=== PATIENT | female | born 1945 | race Caucasian/White ===

== ENCOUNTER → 2020-09-29 10:10 | Outpatient (CLI) | payer MEDICARE, SELFPAY ==
--- NOTE | ~2020-09-29 | XR_ITS ---
EXAMINATION: XR hip LT min 3V w AP pelvis EXAM DATE: 09/29/2020 10:33 INDICATION: Left hip pain. TECHNIQUE: Left hip frontal, 'frog leg' projections for interpretation. Frontal projection pelvis. There is no prior study for comparison. FINDINGS: Smooth left hip femoral head contour, no radiographic evidence of avascular necrosis. Ther e is mild symmetric bilateral hip primary osteoarthritis. There are no acute fractures or dislocation s identified. There is no subcutaneous gas. The soft tissue is unremarkable. Some laparotomy wire s, right abdominal suture material and pelvic surgical clips. IMPRESSION: Mild symmetric bilateral hip osteoarthritis. Reviewed, dictated and finalized at location A.
== END ==
PROVIDERS: PCP Family Medicine; Visit Provider Physician Assistant Medical
DX: M25.552 Pain in left hip (principal); M16.0 Bilateral primary osteoarthritis of hip
CPT/HCPCS: 73502

== ENCOUNTER 2021-12-22 13:28 | Emergency (ER) | payer MEDICARE, SELFPAY ==
[2021-12-22 13:43] VITALS: BP 124/71; PULSE 68; RESP 16; TEMP 36.3; O2SAT 99
--- NOTE | 2021-12-22 13:58 | ED.GENADULT ---
HPI - General Adult General Chief complaint: Dizziness Stated complaint: dizziness History of Present Illness HPI narrative: Patient is a 76-year-old female who presents to the [facility] via POV for an evaluation of dizziness that began last night. She reports her dizziness as a spinning sensation. She states her symptoms improve with lying down and worsen with all movement. History of vertigo. Today's symptoms are identical to previous episode of vertigo. Denies taking OTC meds for symptoms. Related Data Home Medications Medication Instructions Recorded Confirmed cholecalciferol (vitamin D3) 50 2,000 unit PO DAILY 07/27/19 06/26/21 mcg (2,000 unit) capsule Allergies Allergy/AdvReac Type Severity Reaction Status Date / Time Sulfa (Sulfonamide Allergy Unknown Skin Verified 10/31/21 10:38 Antibiotics) Reaction Review of Systems Review of Systems: Denies fever, chills, sweats, poor p.o. intake, LOC, paresthesias, shortness of breath, nausea, vomiting, diarrhea, abdominal pain, chest pain, and heart palpitations PMFSH Past Medical History Medical History Exostosis of left posterior calcaneus Retrocalcaneal bursitis Family History Family History Other Breast cancer Social History Social History Smoking packs per day: 3 Smoking cigarettes per day: 60.0 Tobacco type: cigarettes Alcohol intake: never Substance use: never Substance use type: does not use Comments I have reviewed and agree with the patient's past medical, surgical, social, and family hx as documented by the RN. There is no relevant family history pertinent to the presenting complaint. Exam Narrative: GENERAL: Well-appearing, well-nourished, and in no acute distress. HEAD: Normocephalic, atraumatic. No sinus tenderness or facial swelling appreciated. No evidence of ear bleeding or drainage from ears. No evidence of foreign bodies. No signs of basilar skull fracture: no hemotympanum, marx's sign, or raccoon's eyes. EYES: PERRLA and EOMI. No evidence of erythema, swelling, or drainage. ENT: Bilateral external ears and ear canals normal. Bilateral TMs are normal. No TM perforation. Nares clear, no septal hematoma or epistaxis. Bilateral turbinates without erythema/ swelling. Mucous membranes moist and pink. Uvula is midline without erythema and swelling. No evidence of petechial rash, cobblestoning, lesions, ulcers, erythema, swelling, exudates, peritonsillar abscess, tenting, or drooling. Breath odor and voice normal. NECK: Supple. No injury or pain appreciated. No lymphadenopathy or nuchal rigidity appreciated. CHEST: Bilateral lung weiner are clear to auscultation. No respiratory distress. No evidence of cough or pleuritic cp upon examination. No evidence of deformity, flail chest, hematomas, contusions, lacerations. HEART: Regular rate and rhythm. No murmur, gallop, or rub heard. ABDOMEN: Soft, nontender, nondistended, normal active bowel sounds in all quadrants. No guarding. No rebound tenderness. No pulsatile or palpable abdominal mass(es). No CVAT. No evidence of seat belt sign. BACK: Full ROM. No evidence of deformity, spasm, mass, spinal tenderness, or swelling. EXTREMITIES: Normal range of motion. No edema. SKIN: Warm, dry, no rash. No evidence of loss of sensation. NEURO: No focal deficits. Alert and oriented x4. Positive Romberg's tests. Patient sways to the left and the right. Gait is slowed. Patient hangs onto the wall for support while ambulating. EXTREMITIES: FROM. Pulses palpable at 2+, strength 5/5, and cap refill < 3 seconds in affected extremity. Bilateral biceps, triceps, knee, and ankle reflexes are 2+. Sensation normal. Course Course Level of Care: Express Care Visit Vital Signs Vital si
== END 2021-12-22 14:08 | disposition home or self-care (01) ==
PROVIDERS: Emergency Provider Nurse Practitioner Family; PCP Family Medicine
DX: H81.10 Benign paroxysmal vertigo, unspecified ear (principal); F17.210 Nicotine dependence, cigarettes, uncomplicated
CPT/HCPCS: 99213; G0463

== ENCOUNTER 2022-04-20 06:43 | Emergency (ER) | payer MEDICARE, SELFPAY ==
--- NOTE | ~2022-04-20 | CT_ITS ---
EXAMINATION: CT abdomen pelvis w con INDICATION: Constipation, left lower quadrant pain TECHNIQUE: Computed tomographic images of the abdomen and pelvis were obtained after the administrati on of 100 cc of Omnipaque 350 intravenous contrast. The dose-length product (DLP) was 158.33 mGy-cm. Automated exposure control and iterative reconstruction technique were employed. COMPARISON: None available FINDINGS: Minimal dependent atelectasis is present in the lung bases. The heart size is normal. There are bilateral breast implants. The gallbladder is surgically absent. There is mild enlargement of th e common bile duct and central intrahepatic ducts which is likely due to post cholecystectomy state. An 8 mm lesion of the right hepatic lobe appears to demonstrate peripheral nodular enhancement, consi stent with a hemangioma. Changes of gastric bypass are noted. The spleen, pancreas, and adrenal gland s are normal. The right kidney is unremarkable. There is a 4 mm stone at the left ureterovesicular ju nction which causes moderate left hydroureteronephrosis. No pathologically enlarged abdominal or pelv ic lymph nodes are identified. There is calcified atherosclerosis of the aorta and many of the other arteries. There is no free intraperitoneal gas or evidence of bowel obstruction. There is a 3.7 cm ri ght adnexal cyst. There is mild lumbar spondylosis. IMPRESSION: 1. 4 mm stone at the left ureterovesicular junction causing moderate left hydroureteronephrosis. 2. 3.7 cm cystic lesion of the right adnexa. For postmenopausal patient, follow-up with nonemergent p elvic ultrasound is recommended. Reviewed, dictated and finalized at location A. IMPRESSION: 1. 4 mm stone at the left ureterovesicular junction causing moderate left hydro ureteronephrosis. 2. 3.7 cm cystic lesion of the right adnexa. For postmenopausal patient, follow -up with nonemergent pelvic ultrasound is recommended.
[2022-04-20 06:52] VITALS: BP 151/75; PULSE 71; RESP 16; O2SAT 99
[2022-04-20 07:12] VITALS: BP 153/76; PULSE 72; RESP 18; O2SAT 100
--- NOTE | 2022-04-20 07:36 | ED.ABDPAIN ---
HPI - Abdominal Pain General Chief Complaint: Abdominal Pain Stated Complaint: abd pain Time Seen by Provider: 04/20/22 06:58 History of Present Illness HPI narrative: Patient states that since around 330 yesterday she started having pain in her left lower abdomen and back, with nausea, she has not had symptoms like this in the past that she can recall, cannot recall her last bowel movement. No fevers no chills, no diarrhea, does have a history of a gastric bypass. Related Data Home Medications Medication Instructions Recorded Confirmed cholecalciferol (vitamin D3) 50 2,000 unit PO DAILY 07/27/19 03/05/22 mcg (2,000 unit) capsule Allergies Allergy/AdvReac Type Severity Reaction Status Date / Time Sulfa (Sulfonamide Allergy Unknown Skin Verified 04/20/22 07:12 Antibiotics) Reaction Review of Systems Review of Systems: CONST: No fever. HEENT: No sore throat C/V: No chest pain RESP: No cough GI: Reports abdominal pain, nausea : No dysuria. M/S: No joint pain. SKIN: No rash. NEURO: [No headache or focal numbness or weakness] PSYCH: [No depression] [facility] Past Medical History Medical History (Updated 04/20/22 @ 09:52 by Dinah Gillespie MD) Exostosis of left posterior calcaneus Retrocalcaneal bursitis Surgical History Surgical History (Updated 04/20/22 @ 07:40 by Dinah Gillespie MD) H/O gastric bypass Family History Family History Other Breast cancer Social History Social History Smoking packs per day: 3 Smoking cigarettes per day: 60.0 Smoking status: Never smoker Tobacco type: cigarettes Alcohol intake: never Substance use: never Substance use type: does not use Exam Narrative: EXAMINATION OF ORGAN SYSTEMS/BODY AREAS: Constitutional: Vital signs per nursing GENERAL: Appears somewhat uncomfortable and holding her left lower abdomen HEAD: Normal with no signs of head trauma. EYES: EOMI, conjunctiva normal ENT: Hearing grossly intact LUNGS: Nonlabored breathing. HEART: [Regular rate and rhythm] ABD: [Soft], [mildly tender to palpation left lower quadrant and flank] EXT: Normal range of motion SKIN: [No rashes or lesions.] NEURO: [Alert and oriented x 3. No gross focal sensory or strength deficits.] PSYCH: Normal affect Course Vital Signs Vital signs: Vital Signs Pulse Rate 71 04/20/22 06:52 Respiratory Rate 16 04/20/22 06:52 Blood Pressure 151/75 H 04/20/22 06:52 Pulse Oximetry 99 04/20/22 06:52 Oxygen Delivery Room Air 04/20/22 06:52 Pulse Rate 72 04/20/22 10:42 Respiratory Rate 18 04/20/22 10:42 Blood Pressure 146/68 H 04/20/22 10:42 Pulse Oximetry 99 04/20/22 10:42 Oxygen Delivery Room Air 04/20/22 06:52 MDM - Abdominal Pain MDM Narrative Medical decision making narrative: ED COURSE AND MEDICAL DECISION MAKIN-year-old female presenting to the emergency department for acute flank/left lower quadrant pain, symptoms are concerning for likely renal colic, pyelonephritis, diverticulitis, SBO. Urinalysis and other labs ordered. Morphine and Zofran, IV fluids are ordered. CT scan of the abdomen/pelvis is ordered. Labs are remarkable for: Large amount of blood in the urine with some WBCs, very mildly elevated white count. CT scan of the abdomen/pelvis is reviewed by myself and interpreted by radiology: Left UVJ 4 mm stone. On reevaluation, the patient still having some pain but appears more comfortable. Case discussed with urologist who felt this was stable for outpatient follow-up on Friday. Patient is treated with antibiotics here and given a course to take at home as long with Flomax, she is strongly advised to return to the emergency department for any increasing pain not improving with medications, persistent nausea vomiting, fevers or chills or for any other concerns. Patient is comfortable with this plan and was disc
[2022-04-20] MEDS: LACTATED RINGERS 1,000 ML 999 ML IV CONT (07:42)
[2022-04-20] MEDS: MORPHINE SULFATE (*CRX) 4 MG/ML INJ IV PUSH (07:42)
[2022-04-20] MEDS: ONDANSETRON INJ 4 MG/2 ML VIAL IV PUSH (07:43)
[2022-04-20 07:47] LABS: Basophils Percent Auto 0.4 % (0.2-1.2); Eosinophils Absolute Auto 0.1 K/mm3 (0-0.3); Eosinophils Percent Auto 0.5 % (0-4.4); Hematocrit 48.4 % (37.0-47.0); Hemoglobin 15.7 g/dL (12.0-15.0); Immature Granulocyte Absolute 0.03 K/mm3 (0.00-0.031); Immature Granulocyte Percent A 0.3 % (0-0.5); Lymphocytes Absolute Auto 1.23 K/mm3 (0.9-3.2); Lymphocytes Percent Auto 11.5 % (18.3-44.2); Mean Corpuscular HGB Conc 32.4 g/dl (32-36); Mean Corpuscular Hemoglobin 29.9 pg (26-34); Mean Corpuscular Volume 92.2 fl (80-100); Monocytes Absolute Auto 0.8 K/mm3 (0.1-0.6); Monocytes Percent Auto 7.7 % (2.6-8.5); Neutrophils Absolute Auto 8.5 K/mm3 (1.3-6.7); Neutrophils Percent Auto 79.6 % (45.5-73.1); Platelet Count Result 235 k/mm3 (150-375); Red Blood Count 5.25 M/mm3 (4.2-5.4); Red Cell Distribution Width 13.2 % (11.5-14.5); White Blood Count 10.7 K/mm3 (4.5-10.0)
[2022-04-20 07:57] LABS: Alanine Aminotransferase 28 U/L (6-35); Albumin Level 4.7 g/dL (3.5-5.1); Alkaline Phosphatase 99 U/L (38-126); Anion Gap 11 mmol/L (8-16); Aspartate Amino Transferase 39 U/L (14-36); Bilirubin,Total 0.7 mg/dL (0.2-1.3); Blood Urea Nitrogen 16 mg/dL (7-17); Calcium 9.2 mg/dL (8.4-10.2); Carbon Dioxide 29 mmol/L (22-30); Chloride 103 mmol/L (98-107); Estimated Glomerular Filt Rate 40; Glucose 106 mg/dL (65-110); Lipase 53 U/L (23-300); Potassium 3.5 mmol/L (3.4-5.0); Sodium 143 mmol/L (137-145)
[2022-04-20 08:07] LABS: Add Urine Microscopic? YES; Appearance Urine Cloudy (Clear); Bacteria Urine Trace /hpf; Bilirubin Urine Negative (Negative); Blood Urine 3+ (Negative); Color Urine Yellow (Yellow); Glucose Urine UA Negative (Negative); Ketones Urine Negative (Negative); Leukocyte Esterase Ur Negative LEU/UL (Negative); Mucus Urine Rare /lpf; Nitrate Urine Negative (Negative); Protein Urine 1+ mg/dL (Negative); RBC Urine >75 /hpf (0-2); Specific Grav Ur 1.021 (1.001-1.035); Squamous Epithelial Cell Urine Few /hpf (Few); Urobilinogen Urine Negative mg/dL (<2.0); WBC Urine 21-30 /hpf
[2022-04-20 09:11] VITALS: BP 149/79; PULSE 78; RESP 18; O2SAT 98
[2022-04-20] MEDS: cefTRIAXone 2 GM in SODIUM CHLORIDE 0.9% IV 100 ML 200 ML IVPB (09:58)
[2022-04-20] MEDS: TAMSULOSIN HCL 0.4 MG CAPSULE PO (10:06)
[2022-04-20] MEDS: HYDROcodone/acetaminophen (*CRX) 5-325 MG TABLET 1 TAB PO (10:07)
[2022-04-20 10:08] VITALS: BP 150/76; PULSE 66; RESP 18; O2SAT 95
[2022-04-20 10:42] VITALS: BP 146/68; PULSE 72; RESP 18; O2SAT 99
== END 2022-04-20 10:44 | disposition home or self-care (01) ==
PROVIDERS: Emergency Provider Emergency Medicine; PCP Emergency Medicine
DX: N13.2 Hydronephrosis with renal and ureteral calculous obstruction (principal); Z98.84 Bariatric surgery status; N94.89 Other specified conditions associated with female genital organs and menstrual cycle
CPT/HCPCS: 36415; 74177; 80053; 81001; 83690; 85025; 87086; 96361; 96365; 96375; 99284; A9270; J0696; J2270; J2405; J7120; Q9967

== ENCOUNTER 2022-04-29 13:26 | Outpatient (CLI) | payer MEDICARE, SELFPAY ==
[2022-04-30 10:26] LABS: Kit Draw Collected
== END 2022-04-29 13:27 | disposition home or self-care (01) ==
LOC: ANHGOSHLAB 13:29
PROVIDERS: PCP Emergency Medicine; Visit Provider Emergency Medicine
DX: Z98.84 Bariatric surgery status (principal)
CPT/HCPCS: 36415

== ENCOUNTER 2022-05-02 06:36 | Outpatient (CLI) | payer MEDICARE, SELFPAY ==
--- NOTE | ~2022-05-02 | CT_ITS ---
EXAMINATION: CT abdomen pelvis wo con DATE: 05/02/2022 06:55 INDICATION: Ureteral stone TECHNIQUE: Computed tomography (CT) of the abdomen and pelvis was performed without intravenous contr ast. The dose-length product was 179.19 mGy-cm. Automated exposure control and iterative reconstructi on technique were employed. COMPARISON: CT dated 04/20/2022 FINDINGS: Lung bases are unremarkable. There are breast implants. There are changes of gastric bypass . Heart size normal. There are cholecystectomy clips. The liver, spleen, pancreas, adrenal glands are unremarkable. There is a 2 mm nonobstructing right renal stone. No left renal stone. No significant hydronephrosis. The previously visualized left UVJ stone is not seen on current study. There is a pos sible punctate bladder stone. Nonobstructive bowel gas pattern. Colonic diverticulosis without eviden ce for diverticulitis. There are surgical changes in the lower anterior abdominal wall. There is 4.9 x 3.3 Cm right adnexal cyst, likely ovarian. No free fluid in the pelvis. There are is osteoarthritis of the hips. No acute osseous abnormality. IMPRESSION: 1. Nonobstructing right nephrolithiasis. 2: Possible punctate 1-2 mm bladder stone. 3: 4.9 cm right adnexal cyst. Recommend correlation with ultrasound. Reviewed, dictated and finalized at location A.
== END 2022-05-02 06:37 | disposition home or self-care (01) ==
PROVIDERS: PCP Emergency Medicine; Visit Provider Urology
DX: N20.1 Calculus of ureter (principal); N83.8 Other noninflammatory disorders of ovary, fallopian tube and broad ligament
CPT/HCPCS: 74176

== ENCOUNTER 2022-05-22 09:38 | Outpatient (CLI) | payer MEDICARE, SELFPAY ==
--- NOTE | ~2022-05-22 | US_ITS ---
EXAMINATION: US pelvic complete DATE: 05/22/2022 10:25 INDICATION: Right adnexal cyst seen on CT Comparison:CT dated 05/02/2022 TECHNIQUE: Multiple transabdominal and endovaginal sonographic images of the pelvis performed. FINDINGS: The uterus measures 6.2 x 2.5 x 5.2 cm. The endometrial complex measures 5 mm. There is flu id in the endometrium. The right ovary measures 4.7 x 2.4 x 2.9 cm and the left ovary measures 2.7 x 1.5 x 1.3 cm. There ar e small follicles in each ovary. There is a simple right ovarian cyst measuring 3.5 cm. Normal dopple r signal in both ovaries. There is no free fluid in the pelvis. There are no abnormal masses seen on either side. IMPRESSION: 1. Thickened endomtrial complex. The differential diagnosis includes endometrial hyperplasia, polyp a nd carcinoma. Biopsy is recommended. 2: Simple cyst of the right ovary measuring 3.5 x 1.9 x 2.4 cm. Reviewed, dictated and finalized at location B. NE GEOLOGIST IMPRESSION: 1. Thickened endomtrial complex. The differential diagnosis includes endometria l hyperplasia, polyp and carcinoma. Biopsy is recommended. 2: Simple cyst of the right ovary measuring 3.5 x 1.9 x 2.4 cm.
== END 2022-05-22 09:39 | disposition home or self-care (01) ==
PROVIDERS: PCP Emergency Medicine; Visit Provider Emergency Medicine
DX: N83.201 Unspecified ovarian cyst, right side (principal); R93.89 Abnormal findings on diagnostic imaging of other specified body structures
CPT/HCPCS: 76856

== ENCOUNTER 2023-06-06 07:55 | Outpatient (CLI) | payer MEDICARE, SELFPAY ==
--- NOTE | ~2023-06-06 | DEXA_ITS ---
Bone Density Report Name: XENIA GLEZ Age: 78 Sex: Female Ethnicity: White Date of : 1945 Indication: postmenopausal; screening for osteoporosis; Referring Provider: KRISSY POWELL Study: Bone densitometry was performed. Exam Date: June 06, 2023 Accession number: [id number] Bone Density: Region BMD T-score Z-score Classification AP Spine(L1-L4) 0.842 -1.9 0.7 Osteopenia Femoral Neck (Left) 0.523 -2.9 -0.7 Osteoporosis Total Hip (Left) 0.662 -2.3 -0.4 Osteopenia Femoral Neck (Right) 0.544 -2.8 -0.6 Osteoporosis Total Hip (Right) 0.656 -2.3 -0.4 Osteopenia Total Hip Mean 0.659 -2.3 -0.4 Osteopenia World Health Organization criteria for BMD impression classify patients as: Normal (T-score at or above -1.0), Osteopenia (T-score between -1.0 and -2.5), or Osteoporosis (T-score at or below -2.5). 10-year Fracture Risk: FRAX not reported because: Some T-score for Spine Total or Hip Total or Femoral Neck at or below -2.5 Treated for osteoporosis Clinical Information Provided by Patient: Smokes Is being treated for osteoporosis Has used the following medications: Fosamax (i.e. alendronate), Vitamin D Patient maximum height was 61.5 Menopause Age: 51 No regular weight bearing exercise Does not regularly consume dairy products Drinks caffeinated beverages Onset of menses at age 16 Number of children 3 Impression: The patient has osteoporosis, based on the Left Femoral Neck T-score. The patient has risk factors, including: smoking. Discussion: It is important to ask patients whether they are taking their medications and to encourage continued and appropriate compliance with their osteoporosis therapies to reduce fracture risk. It is also important to review their risk factors and encourage appropriate calcium and vitamin D intakes, exercise, fall prevention and other lifestyle measures. Follow-Up: Consider a repeat BMD and Vertebral Fracture Assessment (VFA) exam in 2 years or sooner if medically necessary, to reassess this patient's status. Reported by: [facility] on 06/06/2023 8:13:00 AM. Reviewed, dictated and finalized at location Ivon BOURGEOIS
== END 2023-06-06 07:56 | disposition home or self-care (01) ==
LOC: ANHIMG 07:56
PROVIDERS: PCP Emergency Medicine; Visit Provider Emergency Medicine
DX: M81.0 Age-related osteoporosis without current pathological fracture (principal)
CPT/HCPCS: 77080

== ENCOUNTER 2023-07-12 10:30 | Emergency (ER) | payer MEDICARE, SELFPAY ==
[2023-07-12 10:40] VITALS: BP 165/87; PULSE 81; RESP 16; TEMP 36.5; O2SAT 100
--- NOTE | 2023-07-12 10:53 | ED.DIZZY ---
HPI - Dizziness General Chief Complaint: Dizziness Stated Complaint: Dizziness Time Seen by Provider: 07/12/23 10:45 Source: patient and RN notes reviewed Mode of arrival: ambulatory Limitations: no limitations History of Present Illness HPI Narrative: Patient presents today complaining of a one-month history of intermittent dizziness and a 2 week history of nasal congestion, rhinorrhea, sinus pressure. Patient states her dizziness is worse at night when she lays down to go to sleep, but quickly resolves, then returned again when she stands, then quickly resolves. She has tried meclizine without relief. History of vertigo in the past. Denies nausea, vomiting, ear pain, sore throat. Related Data Home Medications Medication Instructions Recorded Confirmed cholecalciferol (vitamin D3) 50 2,000 unit PO DAILY 07/27/19 07/12/23 mcg (2,000 unit) capsule Allergies Allergy/AdvReac Type Severity Reaction Status Date / Time Sulfa (Sulfonamide Allergy Unknown Skin Verified 07/12/23 10:37 Antibiotics) Reaction Review of Systems Review of Systems: CONSTITUTIONAL: Denies body aches, fever, chills, or sweats. EYES: Denies visual changes, redness, or discharge. ENT: Denies sore throat, or otalgia.+ congestion, rhinorrhea, sinus pressure CARDIOVASCULAR: Denies chest pain, palpitations, or edema. RESPIRATORY: Denies cough or dyspnea. GASTROINTESTINAL: Denies abdominal pain, nausea, vomiting, or diarrhea. GENITOURINARY: Denies dysuria or hematuria. SKIN: Denies rash, itching, or wounds. MUSCULOSKELETAL: Denies back pain, joint pain, or myalgia. NEUROLOGIC: Denies headache, numbness, tingling, or weakness.+ dizziness PSYCH: Denies depression or anxiety. [facility] Past Medical History Medical History Exostosis of left posterior calcaneus Retrocalcaneal bursitis Surgical History Surgical History H/O gastric bypass Family History Family History Other Breast cancer Social History Social History Smoking packs per day: 0.25 Smoking cigarettes per day: 5.0 Smoking status: Current every day smoker Tobacco type: cigarettes Alcohol intake: never Substance use: never Substance use type: does not use Occupation/Education: retired Comments At time of signature, I have reviewed and agree with nursing past medical, surgical, social and family history unless otherwise noted. Please see nursing chart for further information. There is no relevant family history pertinent to the presenting complaint Exam Narrative: GENERAL: Well-appearing, well-nourished, and in no acute distress. HEAD: Normocephalic, atraumatic. EYES: EOMI. No redness or drainage. Conjunctivae normal. ENT: Mucous membranes pink and moist. Nares mildly congested. No rhinorrhea. TMs normal bilaterally. Throat normal. Uvula midline. NECK: Normal AROM. Supple. No lymphadenopathy. CHEST: No respiratory distress. Clear to auscultation. HEART: Regular rate and rhythm. No murmur appreciated. EXTREMITIES: Normal range of motion. No edema. SKIN: Warm, dry, no rash. Capillary refill normal. Normal skin turgor. NEURO: No focal deficits. Alert and oriented x3. Gait steady. 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 PSYCH: Normal affect. No signs of depression or anxiety. Course Course Level of Care: Express Care Visit Vital Signs Vital signs: Vital Signs Temperature 97.7 F 07/12/23 10:40 Pulse Rate 81 07/12/23 10:40 Respiratory Rate 16 07/12/23 10:40 Blood Pressure 165/87 H 07/12/23 10:40 Pulse Oximetry 100 07/12/23 10:40 Temperature 97.7 F 07/12/23 10:40 Pulse Rate 81 07/12/23 10:40 Respiratory Rate 16 07/12/23 10:40 Blood Pressure 165/87 H 07/12/23 10:40 Pulse Oximet
== END 2023-07-12 11:05 | disposition home or self-care (01) ==
PROVIDERS: Emergency Provider Nurse Practitioner; PCP Emergency Medicine
DX: R42 Dizziness and giddiness (principal); J01.90 Acute sinusitis, unspecified; F17.210 Nicotine dependence, cigarettes, uncomplicated
CPT/HCPCS: 99213; G0463

== ENCOUNTER 2023-07-29 10:19 | Outpatient (CLI) | payer MEDICARE, SELFPAY ==
--- NOTE | ~2023-07-29 | XR_ITS ---
XR_CERV2-3V_CR DATE: 07/29/2023 10:52 INDICATION: Cervical radiculopathy TECHNIQUE: AP, lateral, open-mouth views COMPARISON: None FINDINGS: There is osteopenia. C1 and C2 are normally aligned and the odontoid process is intact. The C2-3 interspace is well preserved. There is approximately 1.6 mm retrolisthesis and moderately severe degenerative disc disease at C3-4. There is moderate degenerative disc disease and similar mild retrolisthesis at C4-5. There is moderately severe degenerative disc disease and approximately 1.5 mm retrolisthesis at C5-6. The C6-7 interspace is well preserved. There is uncovertebral joint spurring particularly at C3-4, C4-5 and C5-6. No fracture or dislocation or locked facet or prevertebral soft tissue swelling is detected. Diffuse idiopathic skeletal hyperostosis of the thoracic spine. IMPRESSION: Moderate to moderately severe cervical spondylosis Reviewed, dictated and finalized at Location A. Reviewed, dictated and finalized at location L. RADIOLOGIST
--- NOTE | ~2023-07-29 | XR_ITS ---
Right Shoulder Technique: AP and scapular Y views were obtained. Clinical History: Pain Findings: No fracture or dislocation is seen. Osseous alignment is anatomic. The glenohumeral and acr omioclavicular joint spaces are preserved. Soft tissues are unremarkable. Impression: Unremarkable right shoulder radiographs. Reviewed, dictated and finalized at [facility]. [employer] Impression: Unremarkable right shoulder radiographs.
--- NOTE | ~2023-07-29 | XR_ITS ---
Left Shoulder Technique: AP and scapular Y views were obtained. Clinical History: Pain Findings: No fracture or dislocation is seen. Osseous alignment is anatomic. The glenohumeral and acr omioclavicular joint spaces are preserved. Soft tissues are unremarkable. Impression: Unremarkable left shoulder radiographs. Reviewed, dictated and finalized at [facility]. WINDER Impression: Unremarkable left shoulder radiographs.
== END 2023-07-29 10:20 | disposition home or self-care (01) ==
LOC: ANHIMG 10:21
PROVIDERS: PCP Emergency Medicine; Visit Provider Emergency Medicine
DX: M43.02 Spondylolysis, cervical region (principal); M25.512 Pain in left shoulder; M25.511 Pain in right shoulder
CPT/HCPCS: 72040; 73030

== ENCOUNTER 2023-09-30 13:58 | Outpatient (RCR) | payer MEDICARE, SELFPAY ==
--- NOTE | 2023-09-30 15:14 | OPREHPOC ---
Outpatient Therapy Plan of Care This is a Multidisciplinary Plan of Care that may contain components documented by all disciplines (PT, OT, and ST.) PT Problem 1 PT Problem #1 Knowledge Deficit PT Goal 1 Goal *educate pt on vestibular system and safety with mobility * indep with home exercises and activities PT Problem 2 PT Problem #2 Impaired Lymphatic System PT Goal 1 Goal pt perform without any vestibular symptoms: 1* supine/sit transfer x1 rep 2* roll R/L in bed x1 3* standing and turn head to R and L 3x 4* Dizziness Handicap Index self rating of 10% limitation in activity 5* further assessment of vestibular system as indicated
--- NOTE | 2023-09-30 15:14 | PTOPEVAL1 ---
Assessment and note entered by Candy Rome, PT Evaluation Information Assessment Status Evaluation Diagnosis vestibular rehab/ dizziness Onset July 12, 2023 Subjective Information have had vertigo in the past, 1x; had the head movements done at the dr office and it was OK; woke up one day and was dizzy; was taking meclazine, have not taken for few days since coming in here to get tested. always feel like head is heavy and having to blow her nose-- have never taken any allergy or sinus meds; Went to the ER in June due to dizziness. cervical xrays: moderate to severe DDD C 3-4-5-6; going to another facility for PT for neck and arm pain- they are feeling better; symptoms: room spinning; dizzy, cannot walk straight; increase symptoms: when first lie down in bed; getting up out of bed; decrease symptoms: hold still, clears in few minutes; Activity: retired; able to do all home and self care activities; Medications: shot for bones, heart burn meds Reported Pain Level Pain Score 1: Self Report Additional Pain Score Comments chronic pain in her neck and into both arms; now, do not have any pain in her hands--comes and goes in both hands/fingers. Assessment PT Clinical Summary Adriana has the diagnosis of dizziness/vestibular rehab. She went to ER in June due to dizziness. And is receiving PT at another facility for cervical and bilateral UE radicular pain. Dizziness Handicap Index self assessment score of 26% limitation in activity level. She reports most spinning with turning her head, rolling in bed and getting in/out bed. Risk factors for vestibular issues: decreased hearing, multiple meds, cervical pain, sinus congestion- without treatment. With the evaluation: [facility] testing for anterior/posterior can
--- NOTE | 2023-11-28 13:43 | PTOPDC ---
Assessment and note entered by Candy Rome, PT Discharge Information Assessment Status Discharge - Pt Not Present Diagnosis vestibular rehab/ dizziness Onset July 12, 2023 Subjective Information pt was not seen this date. Assessment PT Clinical Summary Adriana received the PT evaluation and did not return for further treatment. Discharge PT. The goals were not addressed. Plan of Care PT Services Indicated No
== END 2023-11-28 14:27 | disposition home or self-care (01) ==
LOC: ANHPT 13:58
PROVIDERS: PCP Emergency Medicine; Visit Provider Emergency Medicine
DX: H81.11 Benign paroxysmal vertigo, right ear (principal)
CPT/HCPCS: 95992; 97161; 97530

== ENCOUNTER 2023-12-25 08:17 | Outpatient (CLI) | payer MEDICARE, SELFPAY ==
--- NOTE | ~2023-12-25 | MM_ITS ---
EXAMINATION: MM scrn tim implant BI w lena HISTORY: Screening mammogram TECHNIQUE: Craniocaudal and mediolateral oblique 3-D tomosynthesis images with implant displacement a nd synthetic 2-D images were generated. Craniocaudal and mediolateral oblique views of the breasts wi thout implant displacement were obtained using full field digital mammography. CAD analysis was submi tted and interpreted. COMPARISON: 07/10/2018 BREAST PARENCHYMAL COMPOSITION: The breasts are heterogeneously dense, which may obscure small masses . FINDINGS: There is no evidence of suspicious mass, calcification, or architectural distortion to sugg est malignancy in either breast. There has been no suspicious interval change. IMPRESSION: No mammographic evidence of malignancy. Recommend routine screening mammography in one year. BI-RADS Category 1: Negative Reviewed, dictated and finalized at [facility].
== END 2023-12-25 08:18 | disposition home or self-care (01) ==
PROVIDERS: PCP Emergency Medicine; Visit Provider Emergency Medicine
DX: Z12.31 Encounter for screening mammogram for malignant neoplasm of breast (principal)
CPT/HCPCS: 77063; 77067

== ENCOUNTER 2025-03-08 00:18 | Day surgery (SDC) | payer MEDICARE, MEDICAID, SELFPAY ==
[2025-02-22 14:56] VITALS: BMI 24.5
--- OUTSIDE RECORDS SUMMARY | 2025-03-08 00:20 | XMS_ITS | Clinical Summary ---
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 Name Role Phone Fernando Rdz MD Primary Care Provider [phone] Social History Tobacco Use Types Packs/Day Years Used Date Smoking Tobacco: Never Assessed Personal Safety Answer Date Recorded Getting School Help Needed Not on file 08/23 Comments Unknown Sex and Gender Information Value Date Recorded Sex Assigned at Not on file Legal Sex Female 11:58 AM [employer] Gender Identity Not on file Sexual Orientation Not on file Plan of Treatment Health Maintenance Due Date Last Done Comments Depression Screening 1945 Fall Risk Assessment 1945 Hepatitis C Screening 1945 Osteoporosis Screening-Bone Density Scan 1945 DTaP/Tdap/Td Vaccine (1 - Tdap) 1957 Hepatitis B Screening 02/10/1964 Zoster Vaccine (1 of 2) 02/10/1996 Well Visit 65+ 2011 Pneumococcal vaccine 65+ (2 of 2 - PCV20 or PCV21) 06/02/2019 06/02/2018 Covid-19 Vaccine (4 - 2024-2 6 season) 2025 06/06/2021, 09/03/2020, 08/13/2020 Influenza Vaccine (#1) 2025 , 03/02/2019, 05/04/2018, Additional history exists Breast Cancer Screening-Mammogram Discontinued 09/12/2022, 07/11/2021, 07/22/2018 Procedures Procedure Name Priority Date/Time Associated Diagnosis Comments SCREENING MAMMOGRAM BILATERAL W BIN W IMPLANTS Schedule Routine, Read Routine (OP Routine) 09/12/2022 9:35 AM CDT Screening mammogram, encounter for from Last 3 Months or Most Recently Relevant to Health Maintenance Results * Screening Mammogram Bilateral W Bin W Implants (09/12/2022 9:35 AM CDT) Anatomical Region Laterality Modality Breast Bilateral Mammography Narrative 09/13/2022 12:09 PM CDT Mammogram Technique: Bilateral Digital Breast Tomosynthesis, Bilateral C-view 2D Screening mammogram. Views obtained: bilateral craniocaudal; bilateral craniocaudal implant displaced; bilateral mediolateral oblique; and bilateral mediolateral oblique implant displaced. Computer Aided Detection was performed. Mammogram Findings: The present examination has been compared to prior imaging studies performed at [facility] on 07/22/2018 and 07/11/2021. There are scattered areas of fibroglandular density. There is no suspicious abnormality in either breast. Impression: There is no mammographic evidence of malignancy. Annual screening mammography is recommended. OVERALL FINAL ASSESSMENT: BI-RADS CATEGORY 1: Negative. Procedure Note Rose Soto MD - 09/13/2022 Mammogram Technique: Bilateral Digital Breast Tomosynthesis, Bilateral C-view 2D Screening mammogram. Views obtained: bilateral craniocaudal; bilateralcraniocaudal implant displaced; bilateral mediolateral oblique; and bilateral mediolateral oblique implant displaced. Computer Aided Detection was performed. Mammogram Findings: The present examination has been compared to prior imaging studies performed at [facility] on 07/22/2018 and 07/11/2021. There are scattered areas of fibroglandular density. There is no suspicious abnormality in either breast. Impression: There is no mammographic evidence of malignancy. Annual screening mammography is recommended. OVERALL FINAL ASSESSMENT: BI-RADS CATEGORY 1: Negative. us Self Screening Mammogram IMG MAMMO PROCEDURES Fi nal Result from Last 3 Months or Most Recently Relevant to Health Maintenance Insurance [employer] [facility] PPO [employer] SENIOR SUPPLEMENT COMMERCIAL GENERIC [employer] MEDICARE HMO MEDICARE AETNA SENIOR SUPPLEMENT COMMERCIAL GENERIC [facility] MEDICARE HMO [facility] [place] [address] [facility] MEDICARE [place] Care Teams Air Press Operator Relationship Specialty Start Date End Date Fernando Rdz MD PCP - General Family Medicine 07/22/22
[2025-03-08 07:19] VITALS: BP 134/50; PULSE 68; RESP 18; TEMP 36.1; O2SAT 100
[2025-03-08] MEDS: LACTATED RINGERS 1,000 ML 150 ML IV CONT (07:28)
--- NOTE | 2025-03-08 07:48 | WPDANESEPPF ---
Anes - Initial Pre Proc Eval Procedure: Operation Date: 03/08/25 08:30 Proposed Procedures p Screening Colonoscopy - Maximo Wise MD Date/Time: 03/08/25 07:48 Surgeon: Maximo Wise MD Pre Op Diagnosis: Personal history of colon polyps, unspecified Patient Data Age: 80 Gender: F Height: 1.55 m Weight: 60.3 kg Last Vital Signs Temp 36.1 C L 03/08/25 07:19 Pulse 68 03/08/25 07:19 Resp 18 03/08/25 07:19 BP 134/50 L 03/08/25 07:19 Pulse Ox 100 03/08/25 07:19 O2 Del Method Room Air 03/08/25 07:19 Allergies Allergy/AdvReac Type Severity Reaction Status Date / Time Sulfa (Sulfonamide Allergy Unknown Skin Verified 03/08/25 07:18 Antibiotics) Reaction Home Medications ?Medication ?Instructions ?Recorded ?Confirmed ?Type atorvastatin 40 mg tablet See Rx Instructions .Route 11/26/24 03/08/25 Rx .COMPLEX #90 tabs omeprazole 20 mg capsule,delayed See Rx Instructions .Route 11/26/24 03/08/25 Rx release .COMPLEX #90 caps Patient hx anesthesia problems: none Family hx anesthesia problems: none Results Review: All pre-operative results and documents have been reviewed as part of the pre-operative evaluation. 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 Surgical History Surgical History H/O gastric bypass Family History Family History Daughter Breast cancer Social History Social History Smoking packs per day: 0.25 Smoking cigarettes per day: 5.0 Smoking status: Former smoker Tobacco type: cigarettes Alcohol intake: never Substance use: never Substance use type: does not use Lack of Transportation: No Lack of Food: Never True Current Housing: I Have Housing Concerned About Future Housing: No Difficulty Paying Gas/Electric Bills: No Difficulty Paying for Meds: No Currently Unemployed: No Education: Decline to Answer Difficulty w/ Childcare or Family Care: No Living arrangements: alone Occupation/Education: retired Spiritual care concerns: No Anes - Eval Final PreProcedure Day of Procedure 03/08/25 07:48 Patient weight: normal Heart: regular rate and rhythm Lungs: clear to auscultation Airway: Mallampati scale class II Neurological: alert and oriented Last oral intake: >/= 8 hours ASA classification: II Emergent: no Anesthetic plan: proceed Anesthesia type and monitoring: general GIVS and standard monitoring Results Review: All pre-operative results and documents have been reviewed as part of the pre-operative evaluation. Informed Consent: The patient's anesthetic plan and its attendant risks and benefits were discussed with the patient/family/POA. Questions were solicited and answers provided to the satisfaction of the patient/family/POA.
--- NOTE | 2025-03-08 08:25 | P.HP_ITS ---
H&P: HPI History of Present Illness Date/Time: 03/08/25 08:25 Chief Complaint: history of colon polyps Narrative: The patient has a history of colonic polyps, the last colonoscopy was approximately 10 years ago. 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 Surgical History Surgical History H/O gastric bypass Family History Family History Daughter Breast cancer Social History Social History Smoking packs per day: 0.25 Smoking cigarettes per day: 5.0 Smoking status: Former smoker Tobacco type: cigarettes Alcohol intake: never Substance use: never Substance use type: does not use Lack of Transportation: No Lack of Food: Never True Current Housing: I Have Housing Concerned About Future Housing: No Difficulty Paying Gas/Electric Bills: No Difficulty Paying for Meds: No Currently Unemployed: No Education: Decline to Answer Difficulty w/ Childcare or Family Care: No Living arrangements: alone Occupation/Education: retired Spiritual care concerns: No Meds Home Medications and Allergies Home Medications ?Medication ?Instructions ?Recorded ?Confirmed ?Type atorvastatin 40 mg tablet See Rx Instructions .Route 0 11/26/24 03/08/25 Rx .COMPLEX #90 tabs omeprazole 20 mg capsule,delayed See Rx Instructions . Route 11/26/24 03/08/25 Rx release .COMPLEX #90 caps Allergies Allergy/AdvReac Type Severity Reaction Status Date / Time Sulfa (Sulfonamide Allergy Unknown Skin Verified 03/08/25 07:18 Antibiotics) Reaction Vital Signs Vital Signs - 24 hr 03/08/25 07:19 Temperature 97 F L Pulse Rate 68 Respiratory Rate 18 Blood Pressure 134/50 L Pulse Oximetry 100 Oxygen Delivery Room Air Exam Const: General: cooperative and healthy appearing Resp: Effort & Inspection: normal respiratory effort and able to speak in complete sentences Auscultation: clear to auscultation bilaterally Cardio: Rate: regular rate Rhythm: regular rhythm GI: Inspection: normal to inspection GI Palp: No No hepatosplenomegaly present Auscultation: normal bowel sounds Rectal Exam: deferred Skin: General skin exam: normal color Psych: Appearance: grossly normal Mental Status: mental status grossly normal Assessment and Plan Assessment and plan (1) History of colonic polyps: Code(s): Z86.0100 - Personal history of colon polyps, unspecified Status: Acute Assessment and Plan: The patient is deemed a good candidate for the procedure. Consent signed. Will proceed.
--- NOTE | 2025-03-08 08:55 | S_PTH ---
PATIENT: Adriana Archer LOC: [facility] U#:[id number] AGE/SX: 80/F ROOM: RE03/08/[address]: Maximo Wise MD : 1945 BED: DIS: 03/08/2025 SPEC #: [id number] RECD: 03/08/25 10:06 STATUS: CRISTINA REQ #: [id number] DIANNE: 03/08/25 08:[address]: Maximo Wise DEPT: [facility] Surgical RECD BY: Edouard Subramanian ENTERED: 03/08/25 10:06 SP TYPE: Surgical OTHR DR: Deny Pennington MD Tissues: A - Colon Polypectomy B - Colon Polypectomy Procedures: Hematoxylin and Eosin Stain Gross and Microscopic Level 4
[2025-03-08 09:11] VITALS: BP 121/69; PULSE 74; RESP 26; O2SAT 100
[2025-03-08 09:21] VITALS: BP 148/76; PULSE 73; RESP 20; O2SAT 100
[2025-03-08] MEDS: ONDANSETRON INJ 4 MG/2 ML VIAL IV PUSH (09:27)
--- NOTE | 2025-03-08 09:27 | SUR.PHASEII ---
PT has n/v Dr Singh notified harpreet ordered and given IVP
[2025-03-08 09:31] VITALS: BP 115/76; PULSE 72; RESP 16; O2SAT 100
== END 2025-03-08 09:48 | disposition home or self-care (01) ==
PROVIDERS: PCP Family Medicine; Referring Provider Nurse Practitioner Family; Visit Provider Internal Medicine Gastroenterology
PROC: 0DJD8ZZ Inspection of Lower Intestinal Tract, Via Natural or Artificial Opening Endoscopic (ICD-10-PCS; CPT 45378; principal; 2025-03-08 08:30)
DX: Z12.11 Encounter for screening for malignant neoplasm of colon (principal); D12.4 Benign neoplasm of descending colon; K57.30 Diverticulosis of large intestine without perforation or abscess without bleeding; Z98.84 Bariatric surgery status; Z87.891 Personal history of nicotine dependence; Z80.3 Family history of malignant neoplasm of breast
CPT/HCPCS: 45390; 88305; J2003; J2405; J2704; J7120